=== PATIENT | male | born 1960 | race Caucasian/White ===

== ENCOUNTER 2017-03-31 12:41 | Emergency (ER) | payer OTHER ==
[~2017-03-31] VITALS: Ht 177.8 cm; Wt 81.6 kg
[2017-03-31 13:44] LABS: Basophils # (auto) 0.1 uL; Basophils % (auto) 0.8 % (0.0-2.0); Eosinophils # (auto) 0.2 uL; Eosinophils % (auto) 2.7 % (0.0-7.0); Hematocrit 48.9 % (41.0-53.0); Hemoglobin 16.4 g/dL (13.5-17.5); Lymphocytes # (auto) 2.1 uL; Lymphocytes % (auto) 27.2 % (10.0-50.0); Mean Corpuscular Hemoglobin 31.8 pg (28.0-32.0); Mean Corpuscular Hgb Conc. 33.4 g/dL (32.0-36.0); Mean Corpuscular Volume 95.2 fL (80.0-100.0); Mean Platelet Volume 7.7 fL (6.9-10.8); Monocytes # (auto) 0.6 uL; Monocytes % (auto) 8.2 % (0.0-12.0); Neutrophils # (auto) 4.6 uL; Neutrophils % (auto) 61.1 % (37.0-80.0); Nucleated Red Blood Cells % 0.1 %; Platelet Count (auto) 252 10^3/uL (140-450); Red Cell Distribution Width 14.3 % (11.8-14.3); White Blood Cell 7.6 10^3/uL (4.4-10.8)
[2017-03-31 14:20] LABS: Albumin 3.7 g/dL (3.4-5.0); Alkaline Phosphatase 61 U/L (45-117); Anion Gap 6 (5-15); Aspartate Aminotransferase 11 U/L (15-37); BUN/Creatinine Ratio 21.5; Bilirubin, Total 0.7 mg/dL (0.2-1.0); Blood Urea Nitrogen 17 mg/dL (7-18); Calcium 9.2 mg/dL (8.5-10.1); Carbon Dioxide 25 mmol/L (21-32); Chloride 108 mmol/L (98-107); GFR African American 129 mL/min; GFR Non-African American 107 mL/min; Glucose 97 mg/dL (74-106); Magnesium 2.3 mg/dL (1.6-2.6); Sodium 139 mmol/L (136-145); Total Protein 7.9 g/dL (6.4-8.2)
[2017-03-31] MEDS ORDERED: KETOROLAC TROMETH 60MG/2ML VIAL IM ONE (14:45)
[2017-03-31 15:42] VITALS: BP 116/75
== END 2017-03-31 15:45 | disposition home or self-care (01) ==
LOC: EDBD 12:41 → EDUNIT# 12:41 → ER 12:41
DX: J20.9 Acute bronchitis, unspecified (principal); F41.9 Anxiety disorder, unspecified; G35 Multiple sclerosis; F17.210 Nicotine dependence, cigarettes, uncomplicated; F12.10 Cannabis abuse, uncomplicated
CPT/HCPCS: 36415; 71010; 80053; 83735; 84484; 85025; 93005; 96372; 99285; J1885

== ENCOUNTER 2024-05-12 06:36 | Inpatient (IN) | payer OTHER, MEDICAID ==
[~2024-05-12] VITALS: Ht 175.3 cm; Wt 83.5 kg
--- NOTE | 2024-05-12 06:55 | ED.PDOC ---
History of Present Illness HPI Comments 64Y M with PMHx MS presents to ED via EMS for chief complaint lt hip pain s/p fall. Pt uses electronic scooter to move around and slipped while going to the restroom on Monday05/08/2024. Then, pt had a second fall two days ago where he slipped from the scooter while going to the couch. No LOC for both falls. Pt presents to ED with lt hip pain and rt thigh pain. Pt is able to move extremities but has severe pain with the movement. Pt took prescribed Oxycodone but did not feel any pain relief. Pt states he also uses marijuana for pain relief. Pt says he has been unable to walk with walker after the fall. No known allergies. Chief Complaint: Fall Injury Time Seen by MD: 06:43 Reviewed Notes: Medications, Allergies Allergies: Coded Allergies: NO KNOWN ALLERGIES (Unverified , 10/23/09) Information Source: Patient, Emergency Med Personnel Mode of Arrival: EMS Severity: Moderate Timing: Days Duration: Since onset Prehospital treatment: Other Past Medical History Past Medical History (Other): MS Surgical History: Denies all surgeries Family History Family History: Unknown Social History Smoker: Less Than 1 Pack/Day Alcohol: Denies ETOH Use Drugs: Marijuana Lives In: Home Constitutional: denies: chills, diaphoresis, fatigue, fever, malaise, sweats, weakness, others EENTM: denies: blurred vision, double vision, ear bleeding, ear discharge, ear drainage, ear pain, ear ringing, eye pain, eye redness, hearing loss, mouth pain, mouth swelling, nasal discharge, nose bleeding, nose congestion, nose pain, photophobia, tearing, throat pain, throat swelling, voice changes, others Respiratory: denies: cough, hemoptysis, orthopnea, SOB at rest, shortness of breath, SOB with excertion, stridor, wheezing, others Cardiovascular: denies: chest pain, dizzy spells, diaphoresis, Dyspnea on exertion, edema, irregular heart beat, left arm pain, lightheadedness, palpitations, PND, syncope, others Gastrointestinal: denies: abdomen distended, abdominal pain, blood streaked bowels, constipated, diarrhea, dysphagia, difficulty swallowing, hematemesis, melena, nausea, poor appetite, poor fluid intake, rectal bleeding, rectal pain, vomiting, others Genitourinary: denies: burning, dysuria, flank pain, frequency, hematuria, incontinence, penile discharge, penile sore, pain, testicle pain, testicle swelling, urgency, others Neurological: denies: dizziness, fainting, headache, left sided numbness, left sided weakness, numbness, paresthesia, pre-existing deficit, right sided numbness, right sided weakness, seizure, speech problems, tingling, tremors, weakness, others Musculoskeletal: reports: joint pain; denies: back pain, gout, joint swelling, muscle pain, muscle stiffness, neck pain, others Integumetry: denies: bruises, change in color, change in hair/nails, dryness, laceration, lesions, lumps, rash, wounds, others Allergic/Immunocompromised: denies: Difficulty Healing, Frequent Infections, Hives, Itching, others Hematologic/Lymphatic: denies: anemia, blood clots, easy bleeding, easy bruising, swollen glands, others Endocrine: denies: excessive hunger, excessive sweating, excessive thirst, excessive urination, flushing, intolerance to cold, intolerance to heat, unexp lained weight gain, unexplained weight loss, others Psychiatric: denies: anxiety, bipolar disorder, depression, hopeless, panic disorder, schizophrenia, sleepless, suicidal, others All Other Systems: Reviewed and Negative Physical Exam General Appearance: No Apparent Distress, Normal HEENT: Normal ENT Inspection, Pharynx Normal, TMs Normal Neck: Full Range of Motion, Non-Tender, Normal, Normal Inspection Respiratory: Chest Non-Tender, Lungs Clear, No Accessory Muscle Use, No Respiratory Distress, Normal Breath Sounds Cardiovascular: No Edema, No JVD, No Murmur, No Gallop, Normal Peripheral Pulse s, Regular Rate/Rhythm Breast Exam: Deferred Gastrointestinal: No Organomegaly, Non Tender, No Pulsatile Mass, Normal Bowel Sounds, Soft Genitalia: Deferred Pelvic: Deferred Rectal: Deferred Extremities: No calf tenderness, Normal capillary refill, Normal inspection, Normal range of motion, Non-tender, No pedal edema Musculoskeletal : Location: Left Extremity Location: Hip Apperance: Tenderness Neurologic: Alert, [facility] II-XII nml as Tested, No Motor Deficits, Normal Affect, Normal Mood, No Sensory Deficits Cerebellar Function: NOT DONE Reflexes: NOT DONE Skin: Dry, Normal Color, Warm Lymphatic: No Adenopathy Was a procedure done? Was a procedure done?: No Differential Dx Considerations may include: Muscle strain, femur fracture, hip fracture X-Ray, Labs, Meds, VS Vital Signs Date Time Temp Pulse Resp B/P (MAP) Pulse Ox O2 Delivery O2 Flow Rate FiO2 05/12/24 09:02 97 16 127/78 05/12/24 08:21 76 16 94 Room Air* 0 21 05/12/24 08:20 98.2 76 16 146/84 (104) 94 98.2 05/12/24 08:02 76 16 146/84 05/12/24 06:52 75 05/12/24 06:44 98.2 81 18 131/87 (102) 97 Lab Test 05/12/24 07:02 Range/Units White Blood Count 11.2 H 4.4-10.8 10^3/uL Red Blood Count 4.91 4.5-5.90 10^6/uL Hemoglobin 15.1 13.5-17.5 g/dL Hematocrit 46.0 41.0-53.0 % Mean Corpuscular Volume 93.8 80.0-100.0 fL Mean Corpuscular Hemoglobin 30.8 28.0-32.0 pg Mean Corpuscular Hemoglobin Concent 32.9 32.0-36.0 g/dL Red Cell Distribution Width 14.7 H 11.8-14.3 % Platelet Count 267 140-450 10^3/uL Mean Platelet Volume 8.1 6.9-10.8 fL Neutrophils (%) (Auto) 76.9 37.0-80.0 % Lymphocytes (%) (Auto) 10.2 10.0-50.0 % Monocytes (%) (Auto) 9.3 0.0-12.0 % Eosinophils (%) (Auto) 2.9 0.0-7.0 % Basophils (%) (Auto) 0.7 0.0-2.0 % Neutrophils # (Auto) 8.6 1.6-8.6 10 ^3/uL Lymphocytes # (Auto) 1.1 0.4-5.4 10 ^3/uL Monocytes # (Auto) 1.1 0-1.3 10 ^3/uL Eosinophils # (Auto) 0.3 0-0.8 10 ^3/uL Basophils # (Auto) 0.1 0-0.2 10 ^3/uL Nucleated Red Blood Cells 0.0 % Sodium Level 137 136-145 mmol/L Potassium Level 4.6 3.5-5.1 mmol/L Chloride Level 104 98-107 mmol/L Carbon Dioxide Level 22 20-31 mmol/L Anion Gap 11 5-15 Blood Urea Nitrogen 28 H 9-23 mg/dL Creatinine 1.06 0.700-1.30 mg/dL Glomerular Filtration Rate Calc 77 >90 mL/min BUN/Creatinine Ratio 26.4 H 10.0-20.0 Serum Glucose 108 H 74-106 mg/dL Lactic Acid Level 1.7 0.4-2.0 mmol/L Calcium Level 9.9 8.7-10.4 mg/dL Troponin I High Sensitivity 8 </=54 ng/L Current Medications Medications (Trade) Dose Ordered Sig/Brook Route Start Time Stop Time Status Last Admin Morphine Sulfate 4 mg ONCE ONCE IV 05/12/24 07:00 05/12/24 07:01 DC 05/12/24 08:02 Ondansetron HCl (Zofran) 4 mg ONCE ONCE IV 05/12/24 07:00 05/12/24 07:01 DC 05/12/24 08:02 Sodium Chloride 1,000 ml @ 1,000 mls/hr Q1H ONCE IV 05/12/24 07:00 05/12/24 07:59 DC 05/12/24 08:03 [place] [address] Ph: [phone] DIAGNOSTIC IMAGING Diagnostic Imaging Report : [id number] Signed PATIENT: ANGEL YE ACCT: [id number] UNIT: [id number] : 1960 LOC: ER ROOM / BED: / AGE / SEX: 64 / M ADM STATUS: REG ER SERVICE 0646 ORDERING PHYSICIAN: DANIEL HARGROVE MD PROCEDURE(s): CXRP - CHEST PORTABLE REASON: fall ORDER NUMBER(s): [id number], ACCESSION NUMBER(s): [id number] CHEST PORTABLE, HISTORY: fall COMPARISON: None None TECHNICAL DATA: 1 view of the chest was obtained. FINDINGS: Lines and tubes: None Cardiomediastinal silhouette: normal Pulmonary vasculature: normal Lung expansion: normal Lung airspace: normal Lung interstitium: normal Pleura: normal Pneumothorax: no Bones: Unremarkable Other: no IMPRESSION: No acute intrathoracic abnormality. ATED BY: FIDEL TRIPP MD DICTATED DATE/TIME: 05/12/241328 SIGNED BY: FIDEL TRIPP MD SIGNED DATE/TIME: 05/12/241328 CC: [place] [address] Ph: [phone] DIAGNOSTIC IMAGING Diagnostic Imaging Report : [id number] Signed PATIENT: ANGEL YE ACCT: [id number] UNIT: [id number] : 1960 LOC: ER ROOM / BED: / AGE / SEX: 64 / M ADM STATUS: REG ER SERVICE 5 ORDERING PHYSICIAN: DANIEL HARGROVE MD PROCEDURE(s): LHIP - L HIP COMPLETE XRAY REASON: fall ORDER NUMBER(s): [id number], ACCESSION NUMBER(s): [id number] CLINICAL INFORMATION: 64 years old, Male; fall injury. TECHNIQUE: 2 views of the left hip were obtained. COMPARISON: None FINDINGS: Acute left femoral neck fracture with associated varus angulation. Moderate arthritic changes in the left hip with joint space narrowing and subchondral sclerosis. Multiple phleboliths are seen in the pelvis. Sacrum is obscured by bowel gas. Likely mild soft tissue swelling adjacent to the left femoral neck fracture. IMPRESSION: Acute left femoral neck fracture. ATED BY: ANGEL GRADY DO DICTATED DATE/TIME: 05/12/241415 SIGNED BY: ANGEL GRADY DO SIGNED DATE/TIME: 05/12/241415 CC: [address] [address] Ph: [phone] DIAGNOSTIC IMAGING Diagnostic Imaging Report : [id number] Signed PATIENT: ANGEL YE ACCT: [id number] UNIT: [id number] : 1960 LOC: ER ROOM / BED: / AGE / SEX: 64 / M ADM STATUS: REG ER SERVICE 5 ORDERING PHYSICIAN: DANIEL HARGROVE MD PROCEDURE(s): RFEM - R FEMUR XRAY REASON: fall, right thigh pain ORDER NUMBER(s): [id number], ACCESSION NUMBER(s): [id number] CLINICAL INFORMATION: 64 years old, Male; fall, right thigh pain. TECHNIQUE: 2 views of the right femur were obtained. COMPARISON: None FINDINGS: No evidence of acute fracture or dislocation. Moderate arthritic changes are seen in the right hip with joint space narrowing and subchondral sclerosis. Partially visualized moderate arthritic changes in the right knee. Multiple phleboliths are seen in the right hemipelvis. IMPRESSION: 1. No evidence of acute bony abnormality. 2. Arthritic changes and nonacute findings as described above. ATED BY: ANGEL GRADY DO DICTATED DATE/TIME: 05/12/24 1347 SIGNED BY: ANGEL GRADY DO SIGNED DATE/TIME: 05/12/24 1347 CC: Time of 1ST Reevaluation: 07:13 Reevaluation 1ST: Unchanged Patient Education/Counseling: Diagnosis, Treatment Family Education/Counseling: No Family Present Additional Information I reviewed the following notes from the pt's past medical encounters: [facility] ER 03/31/2017 dx acute bronchitis, [facility] ER 06/08/2010 dx chest pain The following tests were ordered, and results were reviewed by me: CBC, BMP, Troponin, UA, lactic acid, CXR, lt hip x-ray, rt femur x-ray Additional information was gathered from interviewing the following independent historians: EMS I reviewed and agreed with the following test results read by other providers: CXR, lt hip x-ray, rt femur x-ray I discussed treatments and results with medical personnel. Departure 1 Departure Time of Disposition: 16:49 (Patient has a femur fracture. We will admit patient for further workup and expert consultation) Impression: Primary Impression: Fracture of femoral neck, left Qualified Codes: S72.002A - Fracture of unspecified part of neck of left femur, initial encounter for closed fracture Additional Impressions: Fall Qualified Codes: W19.XXXA - Unspecified fall, initial encounter Multiple sclerosis Disposition: ADMITTED INPATIENT Admit to: Med Surg Condition: Serious Critical Care Note Critical Care Time?: No Stability Stability form required: No Heart Score Heart Score: Heart Score Response (Comments) Value History N/A 0 EKG N/A 0 Age N/A 0 Risk Factors N/A 0 Troponin N/A 0 Total 0 I personally scribed for DANIEL HARGROVE MD ([facility]) on 05/12/24 at 06:55. Electronically submitted by Ayana Link ([facility]). I personally scribed for DANIEL HARGROVE MD ([facility]) on 05/12/24 at 16:18. Electronically submitted by Ayana Link ([facility]). DANIEL HARGROVE MD May 12, 2024 06:55
--- NOTE | 2024-05-12 07:09 | ECG ---
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
[2024-05-12 07:17] LABS: Basophils # (auto) 0.1 10 ^3/uL (0-0.2); Basophils % (auto) 0.7 % (0.0-2.0); Eosinophils # (auto) 0.3 10 ^3/uL (0-0.8); Eosinophils % (auto) 2.9 % (0.0-7.0); Hemoglobin 15.1 g/dL (13.5-17.5); Lymphocytes # (auto) 1.1 10 ^3/uL (0.4-5.4); Lymphocytes % (auto) 10.2 % (10.0-50.0); Mean Corpuscular Hemoglobin 30.8 pg (28.0-32.0); Mean Corpuscular Hgb Conc. 32.9 g/dL (32.0-36.0); Mean Corpuscular Volume 93.8 fL (80.0-100.0); Monocytes # (auto) 1.1 10 ^3/uL (0-1.3); Monocytes % (auto) 9.3 % (0.0-12.0); Neutrophils # (auto) 8.6 10 ^3/uL (1.6-8.6); Neutrophils % (auto) 76.9 % (37.0-80.0); Platelet Count (auto) 267 10^3/uL (140-450); Red Blood Cells 4.91 10^6/uL (4.5-5.90); Red Cell Distribution Width 14.7 % (11.8-14.3); White Blood Cell 11.2 10^3/uL (4.4-10.8)
[2024-05-12 07:26] LABS: Chloride 104 mmol/L (98-107); Potassium 4.6 mmol/L (3.5-5.1); Sodium 137 mmol/L (136-145)
[2024-05-12 07:27] LABS: Anion Gap 11 (5-15); Calcium 9.9 mg/dL (8.7-10.4); Carbon Dioxide 22 mmol/L (20-31)
[2024-05-12 07:32] LABS: BUN/Creatinine Ratio 26.4 (10.0-20.0)
[2024-05-12 07:39] LABS: Blood Urea Nitrogen 28 mg/dL (9-23); Glucose 108 mg/dL (74-106)
[2024-05-12] MEDS: MORPHINE SULFATE 4 MG/ML SYR/VIAL IV ONE (08:02)
[2024-05-12] MEDS: ONDANSETRON HCL 4 MG/2 ML VIAL IV ONE (08:02)
[2024-05-12] MEDS: SODIUM CHLORIDE 0.9% 1,000 ML IV ONE (08:03)
[2024-05-12 08:21] VITALS: PULSE 76; RESP 16; O2SAT 94
--- NOTE | 2024-05-12 13:31 | DVH ---
XY CHEST PORTABLE, HISTORY: fall COMPARISON: None None TECHNICAL DATA: 1 view of the chest was obtained. FINDINGS: Lines and tubes: None Cardiomediastinal silhouette: normal Pulmonary vasculature: normal Lung expansion: normal Lung airspace: normal Lung interstitium: normal Pleura: normal Pneumothorax: no Bones: Unremarkable Other: no IMPRESSION: No acute intrathoracic abnormality.
--- NOTE | 2024-05-12 13:50 | DVH ---
CLINICAL INFORMATION: 64 years old, Male; fall, right thigh pain. TECHNIQUE: 2 views of the right femur were obtained. COMPARISON: None FINDINGS: No evidence of acute fracture or dislocation. Moderate arthritic changes are seen in the ri ght hip with joint space narrowing and subchondral sclerosis. Partially visualized moderate arthritic changes in the right knee. Multiple phleboliths are seen in the right hemipelvis. IMPRESSION: 1. No evidence of acute bony abnormality. 2. Arthritic changes and nonacute findings as described above.
--- NOTE | 2024-05-12 14:19 | DVH ---
CLINICAL INFORMATION: 64 years old, Male; fall injury. TECHNIQUE: 2 views of the left hip were obtained. COMPARISON: None FINDINGS: Acute left femoral neck fracture with associated varus angulation. Moderate arthritic comer es in the left hip with joint space narrowing and subchondral sclerosis. Multiple phleboliths are se en in the pelvis. Sacrum is obscured by bowel gas. Likely mild soft tissue swelling adjacent to the l eft femoral neck fracture. IMPRESSION: Acute left femoral neck fracture.
--- NOTE | 2024-05-12 17:13 | DVHHP2 ---
History of Present Illness Reason for Visit: Hip pain History of Present Illness 64-year-old female with past medical history as stated multiple sclerosis comes to the ED after having a fall at home patient has an electric scooter fell off the electric scooter another point in time was having severe hip pain since then the patient's pain has been getting worse over the past 2 days on initial evaluation in the ED patient was stated to have worsening range of motion inability to walk inability to ambulate and acute signs of possible with femur fracture patient was recommended for admission further evaluation and continued management Review of Systems Constitutional: No: Fever, Chills, Sweats, Weakness, Malaise, Other Eyes: No: Pain, Vision change, Conjunctivae inflammation, Eyelid inflammation, Other, Redness ENT: No: Ear pain, Ear discharge, Nose pain, Nose discharge, Nose congestion, Mouth pain, Mouth swelling, Throat pain, Throat swelling, Other Respiratory: No: Cough, Dry, Shortness of breath, SOB with excertion, Wheezing, Hemoptysis, Pleuritic Pain, Sputum, Wheezing, Other Cardiovascular: No: Chest Pain, Palpitations, Orthopnea, Paroxysmal Noc. Dyspnea, Edema, Lt Headedness, Other Gastrointestinal: No: Nausea, Vomiting, Abdominal Pain, Diarrhea, Constipation, Melena, Hematochezia, Other Genitourinary: No Dysuria, No Frequency, No Incontinence, No Hematuria, No Retention, No Other Musculoskeletal: No: other, neck pain, shoulder pain, arm pain, back pain, hand pain, leg pain, foot pain Skin: No: Rash, Lesions, Jaundice, Bruising, Other Neurological: Weakness, Incoordination; No: Numbness, Change in speech, Confusion, Seizures, Other Allergies: Coded Allergies: NO KNOWN ALLERGIES (Unverified , 10/23/09) Exam Vital Signs Vital Signs Date Time Temp Pulse Resp B/P (MAP) Pulse Ox O2 Delivery O2 Flow Rate FiO2 05/12/24 09:02 97 16 127/78 05/12/24 08:21 94 Room Air* 0 21 05/12/24 08:20 98.2 98.2 General Appearance: Alert, Oriented X3 HEENT: Atraumatic, PERRLA, EOMI Respiratory: Clear to auscultation, Normal air movement Cardiovascular: Normal S1, Normal S2 Abdominal: Normal bowel sounds, Soft, No tenderness Extremities: No clubbing, No cyanosis, No edema Skin: No rashes, No breakdown, No significant lesion Neuro: Normal gait (Gait unable to be assessed due to fracture), Normal speech Psych/Mental Status: Mood NL Labs/Xrays Labs Test 05/12/24 07:02 Range/Units White Blood Count 11.2 H 4.4-10.8 10^3/uL Red Blood Count 4.91 4.5-5.90 10^6/uL Hemoglobin 15.1 13.5-17.5 g/dL Hematocrit 46.0 41.0-53.0 % Mean Corpuscular Volume 93.8 80.0-100.0 fL Mean Corpuscular Hemoglobin 30.8 28.0-32.0 pg Mean Corpuscular Hemoglobin Concent 32.9 32.0-36.0 g/dL Red Cell Distribution Width 14.7 H 11.8-14.3 % Platelet Count 267 140-450 10^3/uL Mean Platelet Volume 8.1 6.9-10.8 fL Neutrophils (%) (Auto) 76.9 37.0-80.0 % Lymphocytes (%) (Auto) 10.2 10.0-50.0 % Monocytes (%) (Auto) 9.3 0.0-12.0 % Eosinophils (%) (Auto) 2.9 0.0-7.0 % Basophils (%) (Auto) 0.7 0.0-2.0 % Neutrophils # (Auto) 8.6 1.6-8.6 10 ^3/uL Lymphocytes # (Auto) 1.1 0.4-5.4 10 ^3/uL Monocytes # (Auto) 1.1 0-1.3 10 ^3/uL Eosinophils # (Auto) 0.3 0-0.8 10 ^3/uL Basophils # (Auto) 0.1 0-0.2 10 ^3/uL Nucleated Red Blood Cells 0.0 % Sodium Level 137 136-145 mmol/L Potassium Level 4.6 3.5-5.1 mmol/L Chloride Level 104 98-107 mmol/L Carbon Dioxide Level 22 20-31 mmol/L Anion Gap 11 5-15 Blood Urea Nitrogen 28 H 9-23 mg/dL Creatinine 1.06 0.700-1.30 mg/dL Glomerular Filtration Rate Calc 77 >90 mL/min BUN/Creatinine Ratio 26.4 H 10.0-20.0 Serum Glucose 108 H 74-106 mg/dL Lactic Acid Level 1.7 0.4-2.0 mmol/L Calcium Level 9.9 8.7-10.4 mg/dL Troponin I High Sensitivity 8 </=54 ng/L Assessment/Plan Assessment/Plan Admit to [facility] Acute left femoral neck fracture Orthopedics consulted in the ED P.r.n. pain management IV hydration Preop antibiotics Recommendations as per surgery NPO after midnight Mild hyperglycemia insulin sliding scale Plan discussed with: Patient My Orders Orders - LISA SHAFFER MD Procedure Category Date Status Time Admit ADMIT 05/12/24 Verified 17:07 Code Status CODE 05/12/24 Verified 17:[address] [facility] 05/12/24 Verified 17:[address] [facility] 05/12/24 Verified Adm. 17:07 Npo (Nothing By DIET 05/12/24 Verified Mouth) Diet Dinner Sodium Chloride 0.9% [facility] 05/12/24 Verified 17:15 Lorazepam Tablet [facility] 05/12/24 Verified (Ativan Tablet) 17:15 Alum & Mag [facility] 05/12/24 Verified Hydrox-Simethicone 17:15 Docusate Sodium [facility] 05/12/24 Verified Capsule (Colace 17:15 Acetaminophen Tablet [facility] 05/12/24 Verified (Tylenol Tablet) 17:15 Temazepam (Restoril) [facility] 05/12/24 Verified 17:[address] [facility] 05/12/24 Verified From Base 17:[address] [facility] 05/12/24 Verified 17:07 Basic Metabolic Panel LAB 05/13/24 Verified 04:00 Complete Blood Count LAB 05/13/24 Verified 04:00 Patient Condition ORDERS 05/12/24 Verified 17:[address] [facility] 05/12/24 Verified 17:07 Hydrocodone-Acet [facility] 05/12/24 Verified 5/325mg Tab ([place] 17:15 Ondansetron Hcl [facility] 05/12/24 Verified (Zofran) 17:15 Morphine 2mg Iv Q4hprn [facility] 05/12/24 Verified 17:15 Rosemary Nelson Of Changes [facility] 05/12/24 Verified From Base 17:07 Oxygen By Nasal RT 05/12/24 Verified Cannula 17:07 Problem List: (1) Fall (2) Multiple sclerosis (3) Fracture of femoral neck, left Date of Service: May 12, 2024 Billing Provider: LISA SHAFFER MD Common Visit Codes: [id number] INP/OBS CARE (HIGH) LISA SHAFFER MD May 12, 2024 17:13
[2024-05-12] MEDS ORDERED: LORazepam 0.5 MG TAB PO PRN (17:15)
[2024-05-12] MEDS ORDERED: TEMAZEPAM 15 MG CAP PO PRN (17:15)
[2024-05-12] MEDS ORDERED: ACETAMINOPHEN 325 MG TAB PO PRN (17:15)
[2024-05-12] MEDS ORDERED: DOCUSATE SOD 100 MG CAP PO PRN (17:15)
[2024-05-12] MEDS ORDERED: ONDANSETRON HCL 4 MG/2 ML VIAL IV PRN (17:15)
[2024-05-12] MEDS ORDERED: MAALOX PLUS or MAALOX 30 ML PO PRN (17:15)
[2024-05-12] MEDS: SODIUM CHLORIDE 0.9% 1,000 ML IV SCH (17:15)
[2024-05-12 18:30] VITALS: PULSE 83; RESP 16; O2SAT 98
[2024-05-12] MEDS: MORPHINE SULFATE INJ 2 MG/ml SYRG IV PRN (19:03)
[2024-05-12] MEDS: HYDROcodone-ACET 5/325MG TAB PO PRN (23:34)
[2024-05-13 05:38] LABS: Basophils # (auto) 0.1 10 ^3/uL (0-0.2); Basophils % (auto) 1.2 % (0.0-2.0); Eosinophils # (auto) 0.3 10 ^3/uL (0-0.8); Eosinophils % (auto) 2.9 % (0.0-7.0); Hematocrit 41.8 % (41.0-53.0); Lymphocytes # (auto) 0.8 10 ^3/uL (0.4-5.4); Lymphocytes % (auto) 8.7 % (10.0-50.0); Mean Corpuscular Hemoglobin 31.2 pg (28.0-32.0); Mean Corpuscular Hgb Conc. 33.4 g/dL (32.0-36.0); Mean Corpuscular Volume 93.4 fL (80.0-100.0); Monocytes # (auto) 1.1 10 ^3/uL (0-1.3); Monocytes % (auto) 11.6 % (0.0-12.0); Neutrophils % (auto) 75.6 % (37.0-80.0); Nucleated Red Blood Cells % 0.1 %; Platelet Count (auto) 250 10^3/uL (140-450); Red Blood Cells 4.47 10^6/uL (4.5-5.90); Red Cell Distribution Width 14.3 % (11.8-14.3); White Blood Cell 9.2 10^3/uL (4.4-10.8)
[2024-05-13 05:48] LABS: Anion Gap 12 (5-15); Chloride 106 mmol/L (98-107); Potassium 4.4 mmol/L (3.5-5.1); Sodium 138 mmol/L (136-145)
[2024-05-13 05:49] LABS: Calcium 9.5 mg/dL (8.7-10.4)
[2024-05-13 05:54] LABS: BUN/Creatinine Ratio 26.4 (10.0-20.0); Glucose 101 mg/dL (74-106)
[2024-05-13 05:58] LABS: Blood Urea Nitrogen 29 mg/dL (9-23); Carbon Dioxide 20 mmol/L (20-31)
[2024-05-13 08:00] VITALS: PULSE 77; RESP 17; O2SAT 95
[2024-05-13 09:59] LABS: Urine Bacteria MOD /hpf (None Seen); Urine Blood 1+ /uL (Negative); Urine Clarity Clear (Clear); Urine Color Light-Yellow (Yellow); Urine Mucus FEW (None Seen); Urine Protein, UAD TRACE (Negative); Urine Specific Gravity 1.018 (1.001-1.035); Urine Sperm PRESENT /hpf (None Seen); Urine Squamous Epithelial Cell None Seen /hpf (<5); Urine Urobilinogen Normal (Negative); Urine WBC 6 /hpf (0 - 3); Urine pH 5.5 (5.0-9.0)
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
[2024-05-13 11:38] VITALS: BP 134/85; PULSE 74; RESP 18; TEMP 98.4; O2SAT 95
[2024-05-13 11:58] VITALS: BP 134/85; PULSE 74; RESP 18; TEMP 98.4; O2SAT 95
--- NOTE | 2024-05-13 12:26 | DVHPN2 ---
Progress Note - Dictate Date Seen: May 13, 2024 Medical Necessity Reason Pt with a Central, PICC or Fol: No Subjective Clinically stable. Status post mechanical fall with a limp feet fracture. Evaluated by orthopedic surgeon scheduled for possible surgery tomorrow. Requesting cardiac evaluation preop for today. vital signs Vital Sign Date Time Temp Pulse Resp B/P (MAP) Pulse Ox O2 Delivery O2 Flow Rate FiO2 05/13/24 10:27 74 24 143/71 (95) 95 05/13/24 07:06 98.4 98.4 05/12/24 19:18 Room Air* 0 21 Total Intake and Output 05/12/24 05/12/24 05/13/24 15:00 23:00 07:00 Intake Total 1000 ml 180 ml 60 ml Balance 1000 ml 180 ml 60 ml medications Current Medications Medications Dose Ordered Sig/Brook Route Start Time Stop Time Status Last Admin Dose Admin Sodium Chloride 1,000 ml @ 60 mls/hr [id number] IV 05/12/24 17:15 05/13/24 09:55 60 MLS/HR Lorazepam 0.5 mg Q6HP PRN PO 05/12/24 17:15 Al Hydrox/Mg Hydrox/Simethicone 30 ml Q6HP PRN PO 05/12/24 17:15 Docusate Sodium 100 mg BIDPRN PRN PO 05/12/24 17:15 Acetaminophen 650 mg Q6HP PRN PO 05/12/24 17:15 Temazepam 15 mg QHSP PRN PO 05/12/24 17:15 Acetaminophen/ Hydrocodone Bitart 1 tab Q4HP PRN PO 05/12/24 17:15 Ondansetron HCl 4 mg Q4HP PRN IV 05/12/24 17:15 Morphine Sulfate 2 mg Q4HPRN PRN IV 05/12/24 17:15 05/12/24 23:45 2 MG objective Comfortable in bed. Alert awake oriented to place and person. HEENT neck supple no JVD. Heart regular rate and rhythm S1 plus S2. Lungs fair air movement poor inspiratory effort but no rales or wheezes. Chest tube will expansion. Abdomen is soft. Nontender. Positive bowel sounds. Extremities. No edema. Positive distal pedal pulses. laboratory and microbiology Laboratory Tests 05/13/24 04:56 Test 05/13/24 04:56 Range/Units Serum Glucose 101 74-106 mg/dL Assessment/Plan Took over his care today. Patient is clinically stable. We will reconcile his home medications to see if he is taking any medicines for his multiple sclerosis. Patient does not appear to have any acute or recent flare ups. Continue current supportive care and treatment. We will get echocardiogram and cardiac evaluation today. Proceed with surgery for tomorrow. Otherwise follow clinical management per clinical course. Discussed with the nurse regarding care plan Problems(with codes): (1) Fracture of femoral neck, left (2) Fall (3) Multiple sclerosis Plan discussed with: Other ISIAH URRUTIA MD May 13, 2024 12:26
[2024-05-13 12:38] LABS: INR 1.01 (0.9-1.15); Prothrombin Time 10.7 sec (9.3-11.8)
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
--- NOTE | 2024-05-13 15:07 | ECG ---
[facility] Test Date: 2024-05-12 Test Time: 06:51:31 Pat Name: CHEKO YE Department: ER Room: 0284 B Gender: M Attache: SHEYLA : 1960 Requested By: DANIEL HARGROVE Order Number: [id number] Reading MD: Kalen Gottlieb Measurements Intervals [place] Rate: 84 P: 93 TN: 148 QRS: 65 QRSD: 114 T: 63 QT: 356 QTc: 421 Interpretive Statements Sinus rhythm Borderline intraventricular conduction delay Artifact in lead(s) I,II,III,aVR,V1,V2,V3,V4,V5,V6 Electronically Signed On 05-15-2024 16:11:23 PST by Kalen Gottlieb Please click the below link to view image of tracing.
[2024-05-13 17:00] VITALS: BP 131/75; PULSE 94; RESP 18; TEMP 98.5; O2SAT 93
[2024-05-13 21:00] VITALS: BP 137/84; PULSE 70; RESP 17; TEMP 98.1; O2SAT 95
[2024-05-14 04:29] LABS: INR 1.05 (0.9-1.15); Partial Thromboplastin Time 29.1 SEC (24.5-34.5); Prothrombin Time 11.1 sec (9.3-11.8)
[2024-05-14 05:00] VITALS: BP 152/78; PULSE 68; RESP 17; TEMP 98.3; O2SAT 93
[2024-05-14 09:00] VITALS: BP 138/80; PULSE 73; RESP 18; TEMP 98.3; O2SAT 100
[2024-05-14 13:00] VITALS: BP 136/75; PULSE 59; RESP 16; TEMP 98.1; O2SAT 91
[2024-05-14] MEDS ORDERED: HYDROmorphone HCL 2 MG/ML VL/or syr ONE (13:36)
[2024-05-14] MEDS ORDERED: MIDAZOLAM HCL 2MG/2ML 2ml VIAL (1mg/ml) ONE (13:36)
[2024-05-14] MEDS ORDERED: fentaNYL CITRATE 100 MCG/2 ML VL ONE (13:36)
[2024-05-14] MEDS ORDERED: PROPOFOL 10 MG/ML 20 ML IV ONE (13:37)
[2024-05-14] MEDS ORDERED: GLYCOPYRROLATE 0.2 MG/ML 1ML VIAL ONE (13:37)
[2024-05-14] MEDS ORDERED: KETOROLAC TROMETH 30 MG/ML 1ML VIAL ONE ×2 (13:37→14:11)
[2024-05-14] MEDS ORDERED: HYDROCORTISONE SOD SUCC 100 MG/2ML INJ VIAL ONE (13:37)
[2024-05-14] MEDS ORDERED: ePHEDrine SULFATE 50 MG/ML AMP ONE (13:37)
[2024-05-14] MEDS ORDERED: ONDANSETRON HCL 4 MG/2 ML VIAL ONE (13:37)
[2024-05-14] MEDS ORDERED: ceFAZolin 2 GM/D5W100ml 100 ML IV ONE (14:03)
[2024-05-14] MEDS ORDERED: EPINEPHrine HCL 1 MG/1 ML AMP ONE (14:09)
[2024-05-14] MEDS ORDERED: TRANEXAMIC ACID 20 ML ONE (14:09)
[2024-05-14] MEDS ORDERED: BUPIVACAINE 0.25% INJ 50ML VIAL ONE (14:10)
[2024-05-14] MEDS ORDERED: VANCOMYCIN HCL 1000 MG VL ONE (14:11)
[2024-05-14] MEDS ORDERED: KETAMINE 50mg/ML 10ml Vial 10 ML ONE (15:05)
[2024-05-14 16:18] VITALS: PULSE 69; RESP 16; O2SAT 98
--- NOTE | 2024-05-14 16:21 | DVHOP2 ---
Operative Report - 2 Report Details Date: 05/14/24 Preop Diagnosis: Displaced left femoral neck fracture Postop Diagnosis: Same Surgeon: Moody Dee MD Anesthesiologist: Valentin Anesthesia: General Drains: Anthony closed wound suction Implant: Ortho development Alpine stem size 14, plus six neck length 28 cobalt chrome head 52 bipolar shell, cement restrictor, distal centralizer Consent: The patient was informed of the risks and benefits of the procedure. These include but are not limited to complications of anesthesia, postoperative infection, incomplete relief of symptoms, recurrence of symptoms, damage to blood vessels, nerves and tendons, deep venous thrombosis, pulmonary embolism and possible need for repeat surgery in the future. Complications: None Estimated Blood Loss: 100 cc Fluids: See anesthesia record Findings: Acute displaced left hip femoral neck fracture Indications for Surgery: Unstable hip fracture, intractable pain Name of Procedure Performed Left hip cemented bipolar hemiarthroplasty Procedure Details Procedure Details: The patient was brought to the operating room and given general anesthetic. Preop patient received IV antibiotic and tranexamic acid. The patient was placed in lateral decubitus position with the operative hip up stabilized with hip positioners. Axillary roll applied and lower extremities well-padded. The operative hip was prepped and draped in sterile fashion. Surgical timeout was performed verifying patient, laterality and procedure. Incision was made over the greater trochanter. Subcutaneous dissection and hemostasis were performed with Bovie and aqua mantis. I incised the fascia and inserted the Charnley retractor. I identified the gluteus medius that was split at the junction of its anterior middle thirds with Bovie then incised off the anterior greater trochanter with Bovie. I then performed anterior capsulectomy and extended capsular incision posterior medially and superior laterally. Femoral neck cut was made with saw conservatively and fragments removed with rongeur. I then removed the femoral head with corkscrew and elevator. The head was measured on the back table with calipers. Any fragments in the acetabulum were removed with rongeur. Acetabulum was irrigated with normal saline. I then placed the leg in the sterile bag anteriorly and brought my attention to the proximal femur. I clipped any remaining lateral neck with rongeur. I cleaned up the greater trochanter shoulder with Bovie. I used the box osteotome, canal finder and lateralizing rasp. I then sequentially broached to a size 14. I trialed and eventually decided on the plus six neck with [standard] offset stem. Based on trialing and caliper I decided on the size 52 bipolar shell. Head and neck trials were removed. I used the calcar planar to revise femoral neck cut. The broach was removed. I applied a distal cement restrictor. I brushed the canal. I then irrigated the canal copiously with normal saline Pulsavac lavage. I kept the canal as dry as possible then injected cement and pressurized. I applied a distal centralizer to the stem. I then inserted the stem removing excess cement in usual fashion. I held the stem in place until cement cured. I then irrigated the wound with xperience wound fluid. I did a final trial to verify stability. I cleaned and dried the Posey taper and tapped on the head and bipolar shell. The hip was reduced. I applied a gram of vancomycin to the deep and superficial wound. I repaired the gluteus medius with #5 FiberWire in running fashion and oversewed the repair with 0 Vicryl. I repaired the fascia with #1 Ethibond interrupted [id number]. Deep subcutaneous tissue was closed with 0 Vicryl. Superficial subcutaneous tissue was closed with 2-0 Vicryl. The skin was closed with chaitanya. I then applied the anthony closed wound suction dressing. Patient tolerated procedure well and was brought to the r ecovery room in stable condition Condition Stable Disposition Still a Patient MOODY DEE MD May 14, 2024 16:21
[2024-05-14] MEDS ORDERED: LACTATED RINGER'S 1,000 ML IV SCH (16:30)
[2024-05-14] MEDS ORDERED: ONDANSETRON HCL 4 MG/2 ML VIAL IV ONE (16:30)
[2024-05-14] MEDS: HYDROmorphone HCL 2 MG/ML VL/or syr IV PRN (16:50)
[2024-05-14] MEDS: KETOROLAC TROMETH 30 MG/ML 1ML VIAL IV PRN (17:00)
--- NOTE | 2024-05-14 17:01 | DVH ---
EXAM: XY PELVIS AP CLINICAL HISTORY: postop COMPARISON: None TECHNIQUE: XY PELVIS AP Findings/Impression: Single frontal view of the pelvis. There is no evidence of an acute fracture, dislocation, blastic, or lytic lesions. Left total hip arthroplasty with postsurgical changes.
--- NOTE | 2024-05-14 18:04 | DVHPN2 ---
Progress Note - Dictate Date Seen: May 14, 2024 Medical Necessity Reason Pt with a Central, PICC or Fol: No Subjective Patient just got back from his hip surgery by orthopedic surgeon per nurse. Patient's vital signs are stable. vital signs Vital Sign Date Time Temp Pulse Resp B/P (MAP) Pulse Ox O2 Delivery O2 Flow Rate FiO2 05/14/24 17:18 89 13 127/73 (91) 98 05/14/24 16:18 98.2 98.2 05/14/24 16:18 Mask 6.0 98 Total Intake and Output 05/13/24 05/13/24 05/14/24 15:00 23:00 07:00 Intake Total 180 ml 160 ml Output Total 500 ml 150 ml 1700 ml Balance -320 ml 10 ml -1700 ml medications Current Medications Medications Dose Ordered Sig/Brook Route Start Time Stop Time Status Last Admin Dose Admin Sodium Chloride 1,000 ml @ 60 mls/hr [id number] IV 05/12/24 17:15 05/14/24 10:13 60 MLS/HR Lorazepam 0.5 mg Q6HP PRN PO 05/12/24 17:15 Al Hydrox/Mg Hydrox/Simethicone 30 ml Q6HP PRN PO 05/12/24 17:15 Docusate Sodium 100 mg BIDPRN PRN PO 05/12/24 17:15 Acetaminophen 650 mg Q6HP PRN PO 05/12/24 17:15 Temazepam 15 mg QHSP PRN PO 05/12/24 17:15 Acetaminophen/ Hydrocodone Bitart 1 tab Q4HP PRN PO 05/12/24 17:15 Ondansetron HCl 4 mg Q4HP PRN IV 05/12/24 17:15 Morphine Sulfate 2 mg Q4HPRN PRN IV 05/12/24 17:15 05/14/24 10:15 2 MG Lactated Ringer's 1,000 ml @ 100 mls/hr Q10H IV 05/14/24 16:30 Ketorolac Tromethamine 15 mg Q6HR PRN IV 05/14/24 16:30 05/19/24 16:29 05/14/24 17:00 15 MG Cefazolin Sodium 50 ml @ 100 mls/hr Q8HR IV 05/14/24 22:00 Apixaban 2.5 mg BID PO 05/15/24 10:00 06/19/24 09:59 objective Comfortable in bed. Alert awake comfortable. HEENT neck supple no JVD. Heart regular rate and rhythm S1 plus S2. Lungs fair air movement poor inspiratory effort but no rales or wheezes. Chest tube will expansion. Abdomen is soft. Nontender. Positive bowel sounds. Extremities. No edema. Positive distal pedal pulses. laboratory and microbiology Laboratory Tests 05/13/24 04:56 Test 05/13/24 04:56 Range/Units Serum Glucose 101 74-106 mg/dL Assessment/Plan Status post hip surgery Clear liquid diet once he is more awake and regular diet in the morning. Physical therapy evaluation. Social Service consultation for detention facility for physical therapy. Continue DVT prophylaxis and rest of supportive care and treatment including pain medications and fluids as patient is on currently. Otherwise follow clinical management per clinical course. Discussed with the nurse regarding care plan. Problems(with codes): (1) Fracture of femoral neck, left (2) Fall Plan discussed with: Other ISIAH URRUTIA MD May 14, 2024 18:04
[2024-05-14] MEDS: ceFAZolin 1GM/50ML 50 ML IV SCH (21:35)
[2024-05-14 22:00] VITALS: BP 92/54; PULSE 59; RESP 16; TEMP 96.9; O2SAT 93
[2024-05-15 01:00] VITALS: BP_SYST 103; BP_SYST 115; BP_DIAS 61; BP_DIAS 68; PULSE 60; PULSE 77; RESP 18; TEMP 97.5; TEMP 98.2; O2SAT 96; O2SAT 97
[2024-05-15 05:00] VITALS: BP 119/68; PULSE 79; RESP 16; TEMP 97.9; O2SAT 94
[2024-05-15 07:43] LABS: Basophils # (auto) 0.1 10 ^3/uL (0-0.2); Basophils % (auto) 0.6 % (0.0-2.0); Eosinophils # (auto) 0.2 10 ^3/uL (0-0.8); Hematocrit 34.5 % (41.0-53.0); Hemoglobin 11.4 g/dL (13.5-17.5); Lymphocytes # (auto) 1.4 10 ^3/uL (0.4-5.4); Lymphocytes % (auto) 15.1 % (10.0-50.0); Mean Corpuscular Hemoglobin 31.1 pg (28.0-32.0); Mean Corpuscular Hgb Conc. 32.9 g/dL (32.0-36.0); Mean Corpuscular Volume 94.5 fL (80.0-100.0); Monocytes # (auto) 0.8 10 ^3/uL (0-1.3); Monocytes % (auto) 8.4 % (0.0-12.0); Neutrophils # (auto) 6.9 10 ^3/uL (1.6-8.6); Neutrophils % (auto) 73.9 % (37.0-80.0); Platelet Count (auto) 216 10^3/uL (140-450); Red Blood Cells 3.65 10^6/uL (4.5-5.90); Red Cell Distribution Width 13.7 % (11.8-14.3); White Blood Cell 9.3 10^3/uL (4.4-10.8)
[2024-05-15 07:56] LABS: Chloride 107 mmol/L (98-107); Potassium 4.2 mmol/L (3.5-5.1); Sodium 140 mmol/L (136-145)
[2024-05-15 07:57] LABS: Anion Gap 7 (5-15); Calcium 8.8 mg/dL (8.7-10.4); Carbon Dioxide 26 mmol/L (20-31)
[2024-05-15 08:02] LABS: BUN/Creatinine Ratio 26.5 (10.0-20.0); Blood Urea Nitrogen 22 mg/dL (9-23); Glucose 100 mg/dL (74-106)
[2024-05-15 08:15] VITALS: PULSE 63; RESP 16; O2SAT 93
[2024-05-15 09:00] VITALS: BP_SYST 106; BP_SYST 122; BP_DIAS 64; BP_DIAS 77; PULSE 63; PULSE 83; RESP 16; RESP 17; TEMP 97.8; TEMP 98.2; O2SAT 93
[2024-05-15] MEDS: APIXABAN 2.5 MG TAB PO SCH (09:11)
--- NOTE | 2024-05-15 10:35 | DVHPN2 ---
Progress Note - Dictate Date Seen: May 15, 2024 Medical Necessity Reason Pt with a Central, PICC or Fol: No Subjective Patient is seen evaluated along with the nurse at bedside. Patient's family at bedside. Patient does not want to go to [facility] however his significant other wants [place] to be [facility]. Patient is status post hip fracture surgery yesterday. vital signs Vital Sign Date Time Temp Pulse Resp B/P (MAP) Pulse Ox O2 Delivery O2 Flow Rate FiO2 05/15/24 09:00 97.8 63 16 106/64 (78) 93 97.8 05/14/24 20:00 Room Air* 0 21 Total Intake and Output 05/14/24 05/14/24 05/15/24 15:00 23:00 07:00 Intake Total 217 ml 506 ml 240 ml Output Total 350 ml Balance 217 ml 506 ml -110 ml medications Current Medications Medications Dose Ordered Sig/Brook Route Start Time Stop Time Status Last Admin Dose Admin Lorazepam 0.5 mg Q6HP PRN PO 05/12/24 17:15 Al Hydrox/Mg Hydrox/Simethicone 30 ml Q6HP PRN PO 05/12/24 17:15 Docusate Sodium 100 mg BIDPRN PRN PO 05/12/24 17:15 Acetaminophen 650 mg Q6HP PRN PO 05/12/24 17:15 Temazepam 15 mg QHSP PRN PO 05/12/24 17:15 Acetaminophen/ Hydrocodone Bitart 1 tab Q4HP PRN PO 05/12/24 17:15 Ondansetron HCl 4 mg Q4HP PRN IV 05/12/24 17:15 Morphine Sulfate 2 mg Q4HPRN PRN IV 05/12/24 17:15 05/15/24 06:00 2 MG Ketorolac Tromethamine 15 mg Q6HR PRN IV 05/14/24 16:30 05/19/24 16:29 05/14/24 17:00 15 MG Cefazolin Sodium 50 ml @ 100 mls/hr Q8HR IV 05/14/24 22:00 05/15/24 05:44 100 MLS/HR Apixaban 2.5 mg BID PO 05/15/24 10:00 06/19/24 09:59 objective Comfortable in bed. Alert awake comfortable. HEENT neck supple no JVD. Heart regular rate and rhythm S1 plus S2. Lungs fair air movement poor inspiratory effort but no rales or wheezes. Chest tube will expansion. Abdomen is soft. Nontender. Positive bowel sounds. Extremities. No edema. Positive distal pedal pulses. laboratory and microbiology Laboratory Tests 05/15/24 06:18 Test 05/15/24 06:18 Range/Units Serum Glucose 100 74-106 mg/dL Assessment/Plan Status post hip surgery Regular diet today. Physical therapy evaluation. Patient at baseline is wheelchair-bound however he transfers himself independently from wheelchair to bed and bedside commode and to the bathroom floor family who is at bedside. I have advised him to go to a [place] [facility] given he had a left hip surgery repair so that he can ruled out and he has ADLs and be back to his baseline status before going home. His significant other feels that she was not able to get him out of bed to the bedside commode and transfers at home and wants [facility] to be at [facility]. Patient at baseline has a right lower extremity weakness from his multiple sclerosis. We will resume his MS medication he takes 3 times a week and advised family to bring the medicine from home given it is not available in the hospital. Continue rest of supportive care and treatment. We will consider removing Schultz catheter tomorrow and prepare him for [facility]. Problems(with codes): (1) Multiple sclerosis (2) Fall (3) Fracture of femoral neck, left Plan discussed with: Patient, Spouse, Other ISIAH URRUTIA MD May 15, 2024 10:35
--- NOTE | 2024-05-15 11:58 | DVHPN2 ---
Progress Note - Dictate Date Seen: May 15, 2024 Medical Necessity Reason Pt with a Central, PICC or Fol: No Subjective Patient was lying comfortably in bed during my evaluation reports some postoperative hip pain that is being well managed with the help of pain medication. I spoke with the patient's who was at bedside who reports that the patient has not gotten up and walked as his baseline he was only able to transfer from his wheelchair to his bed or commode due to his MS. Patient is otherwise feeling well denying any other complaint or concern during my evaluation. vital signs Vital Sign Date Time Temp Pulse Resp B/P (MAP) Pulse Ox O2 Delivery O2 Flow Rate FiO2 05/15/24 10:35 69 19 128/67 05/15/24 09:00 97.8 93 97.8 05/14/24 20:00 Room Air* 0 21 Total Intake and Output 05/14/24 05/14/24 05/15/24 15:00 23:00 07:00 Intake Total 217 ml 506 ml 240 ml Output Total 350 ml Balance 217 ml 506 ml -110 ml medications Current Medications Medications Dose Ordered Sig/Brook Route Start Time Stop Time Status Last Admin Dose Admin Lorazepam 0.5 mg Q6HP PRN PO 05/12/24 17:15 Al Hydrox/Mg Hydrox/Simethicone 30 ml Q6HP PRN PO 05/12/24 17:15 Docusate Sodium 100 mg BIDPRN PRN PO 05/12/24 17:15 Acetaminophen 650 mg Q6HP PRN PO 05/12/24 17:15 Temazepam 15 mg QHSP PRN PO 05/12/24 17:15 Acetaminophen/ Hydrocodone Bitart 1 tab Q4HP PRN PO 05/12/24 17:15 Ondansetron HCl 4 mg Q4HP PRN IV 05/12/24 17:15 Morphine Sulfate 2 mg Q4HPRN PRN IV 05/12/24 17:15 05/15/24 10:35 2 MG Ketorolac Tromethamine 15 mg Q6HR PRN IV 05/14/24 16:30 05/19/24 16:29 05/14/24 17:00 15 MG Cefazolin Sodium 50 ml @ 100 mls/hr Q8HR IV 05/14/24 22:00 05/15/24 05:44 100 MLS/HR Apixaban 2.5 mg BID PO 05/15/24 10:00 06/19/24 09:59 objective A&O x4 in no acute distress Hip range of motion grossly limited with pain on movement Brody dressing clean, dry, intact, and maintaining suction No distal edema or calf tenderness to palpation Neurovascularly intact with cap refill less than 2 seconds laboratory and microbiology Laboratory Tests 05/15/24 06:18 Test 05/15/24 06:18 Range/Units Serum Glucose 100 74-106 mg/dL Assessment/Plan Continue current management as well as pain control and physical therapy for range of motion exercises in bed. I advised the patient and his family to follow up with our office in 10-14 days for his 1st postoperative evaluation and to maintain his dressings clean, dry, intact, and maintaining suction and may call our office if he has any questions or concerns. Patient's informed me that they are currently planning to transfer the patient to a shelter facility until he is able to get back to his baseline prior to his injury. We agree with the plan and we will continue observing. Plan discussed with: Patient MUKESH ESPINO May 15, 2024 11:58
--- NOTE | 2024-05-15 12:21 | DVHSR ---
APPROVED REPORT EXAM: Two-dimensional and M-mode echocardiogram with Doppler and color Doppler. Blood Pressure: 142/64 mmHg INDICATION Pre-Op RISK FACTORS Height: 70, Weight: 160 DIMENSIONS LVDd (3.8-5.7cm)LA (2D)3.7 (1.9-4.0cm)Aortic Root4.3 (2.0-3.7cm) LVDs (2.5-4.0cm)LA (MM) (1.9-4.0cm)Aortic Cusp Exc2.1 (1.5-2.0cm) EF (%) 63.0 (55-70%)Rt. Atrium4.8 (1.9-4.0cm)Asc. Aorta cm Mitral Valve MitralMitral Stenosis E wave0.62m/sMV Mean GR.mmHg A wave0.59m/sMV Peak GR.mmHg E/A ratio1.12D MVAcm2 DECEL [id number] 1/2 [id number] IVRTmsDop MVA2.66cm2 Aortic Valve Aortic ValveAortic Stenosis V11.51m/Francisco Javier Mean GR.5mmHg V21.57m/Francisco Javier Peak GR.10mmHg LVOT Diameter2.2 (1.8-2.4cm)Doppler AVA3.65cm2 Tricuspid Valve TR Velocity2.96m/s [id number] Other Information Technically limited study due to body habitus and patient position. Patient was laying flat on his b ack sleeping during exam. Conclusion Technically good study. Sinus rhythm. Enlarged left atrium. Enlarged left ventricle. Enlarged aortic root. Valves are normal. EF of 50% with mild global hypokinesis. Normal RV function. Mild TR. No pericardial effusion masses or vegetations.
[2024-05-15 17:00] VITALS: BP 128/62; PULSE 70; RESP 20; TEMP 97.9; O2SAT 95
[2024-05-15 21:00] VITALS: BP 134/73; PULSE 67; RESP 13; TEMP 98.2; O2SAT 99
[2024-05-16] VITALS (7 sets, daily range): BP systolic 114–150; BP diastolic 61–92; PULSE 63–77; RESP 13–18; TEMP 97.7–98.3; O2SAT 95–97
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
--- NOTE | 2024-06-12 10:52 | ECG ---
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
== END 2024-05-16 18:38 | DRG 522 ==
LOC: ER 06:36 → EDBD 06:36 → OVERFLOW 17:07 → WEST WING 05-13 11:34
PROVIDERS: ADMIT Hospitalist; ATTEND Internal Medicine
PROC: 0SRS0J9 Replacement of Left Hip Joint, Femoral Surface with Synthetic Substitute, Cemented, Open Approach (ICD-10-PCS; principal; 2024-05-14 14:39)
DX: S72.092A Other fracture of head and neck of left femur, initial encounter for closed fracture (principal); R71.0 Precipitous drop in hematocrit; G35 Multiple sclerosis; F17.210 Nicotine dependence, cigarettes, uncomplicated; Z99.3 Dependence on wheelchair; Z79.899 Other long term (current) drug therapy; W01.0XXA Fall on same level from slipping, tripping and stumbling without subsequent striking against object, initial encounter; Y93.89 Activity, other specified; Y92.89 Other specified places as the place of occurrence of the external cause; Y99.8 Other external cause status
CPT/HCPCS: 36415; 71045; 72170; 73502; 80048; 81001; 83605; 84484; 85025; 85610; 85730; 86850; 86900; 86901; 93005; 93306; 97110; 97163; 97530; A4565; G0378; J0171; J1885; J2250; J2405; J2704; J3490